=== PATIENT | male | born 1990 | race Caucasian/White ===

== ENCOUNTER → 2016-10-27 | Outpatient (CLI) | payer BC ==
[~2016-10-27] MED LIST: AZEL137S4 NAS; CLIN45GE4 TP; CLON1TAB23 PO; FLUO20CA8 PO; FLUTICASONE PROPIONA NAS
== END | disposition home or self-care (01) ==
LOC: STAR 09:41
PROVIDERS: ATTEND Otolaryngology Facial Plastic Surgery
DX: Z01.818 Encounter for other preprocedural examination (principal); J35.01 Chronic tonsillitis
CPT/HCPCS: 36415; 85025

== ENCOUNTER 2016-11-07 05:34 | Day surgery (SDC) | payer BC ==
[~2016-11-07] VITALS: Ht 175.3 cm; Wt 86.4 kg
[2016-11-07] MEDS ORDERED: LACTATED RINGERS 1,000 ML IV SCH (06:16)
[2016-11-07 06:17] VITALS: BP 111/75
[2016-11-07] MEDS ORDERED: LIDOCAINE 1%, 2ML SQ PRN (06:30)
[2016-11-07] MEDS ORDERED: MIDAZOLAM 1 MG/ML, 2ML ONE (06:38)
[2016-11-07] MEDS ORDERED: FENTANYL PF 250 MCG/5ML ONE (06:38)
[2016-11-07] MEDS ORDERED: OXYcodone 5 MG/5 ML ORAL.SOL UDC PO PRN (07:30)
[2016-11-07] MEDS ORDERED: PROMETHAZINE 25 MG/ML, 1ML IV PRN (07:30)
[2016-11-07] MEDS ORDERED: ONDANSETRON 2MG/ML, 2ML IVPush PRN (07:30)
[2016-11-07] MEDS ORDERED: METOCLOPRAMIDE 5 MG/ML, 2ML IV PRN (07:30)
[2016-11-07] MEDS ORDERED: HYDROmorphone 1 MG/ML, 1ML IV PRN (07:30)
[2016-11-07] MEDS ORDERED: ACETAMINOPHEN 325 MG TABLET PO PRN (07:30)
[2016-11-07] MEDS ORDERED: ACETAMINOPHEN 325 MG/10.15 ML UDC ONE (08:12)
[2016-11-07] MEDS ORDERED: ACETAMINOPHEN 650 MG/20.3 ML UDC ONE (08:12)
[2016-11-07] MEDS ORDERED: FENTANYL PF 100 MCG/2ML ONE (08:12)
[2016-11-07] MEDS ORDERED: OXYcodone 5 MG/5 ML ORAL.SOL UDC ONE (08:13)
[2016-11-07] MEDS: FENTANYL PF 100 MCG/2ML IV PRN ×2 (08:25→08:33)
[2016-11-07] MEDS ORDERED: NEOSTIGMINE 1 MG/ML, 10ML ONE (10:55)
[2016-11-07] MEDS ORDERED: GLYCOPYRROLATE 0.2MG/1ML ONE (10:55)
[2016-11-07] MEDS ORDERED: DEXAMETHASONE 4 MG/ML, 5ML ONE (10:55)
[2016-11-07] MEDS ORDERED: ROCURONIUM 10 MG/ML ONE (10:55)
[2016-11-07] MEDS ORDERED: PROPOFOL 10 MG/ML, 20ML ONE (10:55)
== END 2016-11-07 10:30 | disposition home or self-care (01) ==
LOC: OUT 05:34
PROVIDERS: ATTEND Otolaryngology Facial Plastic Surgery
DX: J35.01 Chronic tonsillitis (principal); K21.9 Gastro-esophageal reflux disease without esophagitis
CPT/HCPCS: 42826; 88304; J1100; J2250; J2704; J2710; J3010; J7120; J3490